=== PATIENT | female | born 1975 | race Asian ===

== ENCOUNTER 2024-04-29 15:51 | Emergency (ER) | payer BC ==
[~2024-04-29] VITALS: Ht 157.5 cm; Wt 86.2 kg
[2024-04-29 17:40] LABS: BASOPHILS % (AUTO) 0.4 % (0.0-2.0); EOSINOPHILS % (AUTO) 1.1 % (0.0-6.0); HEMATOCRIT 37 % (33-45); HEMOGLOBIN 12.8 g/dL (11.5-14.8); LYMPHOCYTES # (AUTO) 1.1 K/uL (0.8-4.8); LYMPHOCYTES % (AUTO) 24.3 % (20.0-44.0); MEAN CORPUSCULAR HEMOGLOBIN 32 PG (26.0-33.0); MEAN CORPUSCULAR HGB CONC 35 g/dl (31.0-36.0); MEAN CORPUSCULAR VOLUME 91 fL (82-100); MONOCYTES # (AUTO) 0.2 K/uL (0.1-1.30); MONOCYTES % (AUTO) 5.4 % (2.0-12.0); NEUTROPHILS # (AUTO) 3.1 K/uL (1.8-8.9); NEUTROPHILS % (AUTO) 68.8 % (43.0-81.0); PLATELET COUNT (AUTO) 194 K/uL (150-450); RED BLOOD CELL COUNT(AUTO) 4.07 MIL/uL (4.0-5.2); RED CELL DISTRIBUTION WIDTH 12.5 % (11.5-15.0); WHITE BLOOD COUNT (AUTO) 4.6 K/uL (4.3-11.0)
[2024-04-29 17:51] LABS: CALCIUM, SERUM 9.1 mg/dL (8.5-10.1); CARBON DIOXIDE 29 mmol/L (21-32); CHLORIDE 107 mmol/L (98-107); CREATININE 0.6 mg/dL (0.6-1.3); GLUCOSE 252 mg/dL (74-106); POTASSIUM 3.9 mmol/L (3.5-5.1); SODIUM SERUM 142 mmol/L (136-145); UREA NITROGEN, BLOOD 11 mg/dL (7-18)
[2024-04-29 18:36] LABS: PREGNANCY TEST URINE QUAL NEGATIVE (NEGATIVE)
[2024-04-29] MEDS ORDERED: ACETAMINOPHEN 325 MG TABLET ONE (18:57)
[2024-04-29] MEDS ORDERED: METOCLOPRAMIDE HCL 10 MG TABLET ONE (18:58)
[2024-04-29] MEDS ORDERED: diphenhydrAMINE HCL 25 MG CAPSULE ONE (18:58)
[2024-04-29] MEDS ORDERED: KETOROLAC TROMETHAMINE INJ 30 MG/ML VIAL IM ONE (19:00)
[2024-04-29] MEDS: ACETAMINOPHEN 325 MG TABLET PO ONE (19:01)
[2024-04-29] MEDS: METOCLOPRAMIDE HCL 10 MG TABLET PO ONE (19:01)
[2024-04-29] MEDS: diphenhydrAMINE HCL 25 MG CAPSULE PO ONE (19:01)
[2024-04-29] MEDS: IV NS 0.9% 1,000 ML BAG IV ONE (19:07)
[2024-04-29] MEDS ORDERED: KETOROLAC TROMETHAMINE INJ 30 MG/ML VIAL ONE (19:42)
[2024-04-29] MEDS: KETOROLAC TROMETHAMINE INJ 30 MG/ML VIAL IV ONE (19:46)
[2024-04-29] MEDS ORDERED: ACET325C7 PO (20:07)
[2024-04-29] MEDS ORDERED: IBUP-1957 PO (20:07)
[2024-04-29 20:32] VITALS: BP 128/65; TEMP 98.8; O2SAT 97
== END 2024-04-29 20:33 | disposition home or self-care (01) ==
LOC: ER 15:51
DX: G43.909 Migraine, unspecified, not intractable, without status migrainosus (principal); M79.601 Pain in right arm
CPT/HCPCS: 99285; 96374; 70450; 71045; 96361; 93005; 85025; 80048; 84703; 36415; 84484; Q0163; J8597; J1885; J7030